=== PATIENT | male | born 1940 | race Caucasian/White ===

== ENCOUNTER 2016-08-30 10:24 | Inpatient (IN) | payer MEDICARE ==
[2016-08-30] VITALS (29 sets, daily range): BP systolic 121–175; BP diastolic 45–124
[~2016-08-30] VITALS: Ht 175.3 cm; Wt 93.0 kg
[2016-08-30] MEDS ORDERED: HEPARIN SODIUM 1,000 UNIT/1ML VIAL IV ONE ×3 (11:10→14:56)
[2016-08-30] MEDS ORDERED: LOSA100T14 PO (12:24)
[2016-08-30] MEDS ORDERED: SIMV40TA5 PO (12:24)
[2016-08-30] MEDS ORDERED: METF10002 PO (12:24)
[2016-08-30] MEDS ORDERED: GLIM2TAB2 PO (12:24)
[2016-08-30] MEDS ORDERED: nitrostat (12:24)
[2016-08-30] MEDS ORDERED: METO100T5 PO (12:24)
[2016-08-30] MEDS ORDERED: ASPI-1035 PO (12:24)
[2016-08-30] MEDS ORDERED: TEMA15CA PO (12:24)
[2016-08-30] MEDS ORDERED: GABA-529 PO (12:24)
[2016-08-30] MEDS ORDERED: ISOS60TA4 PO (12:24)
[2016-08-30] MEDS ORDERED: AMLO2.5T45 PO (12:24)
[2016-08-30] MEDS ORDERED: LIDOCAINE HCL 1% 20ML VIAL (Pyxis) INJ ONE (12:44)
[2016-08-30] MEDS ORDERED: IODIXANOL 320MG/ML 100 ML BOTTLE IV ONE ×3 (12:44→14:36)
[2016-08-30] MEDS ORDERED: MIDAZOLAM HCL 2 MG/2 ML VIAL ONE ×2 (12:46→13:12)
[2016-08-30] MEDS ORDERED: FENTANYL CITRATE/PF 50MCG/ML 2ML VIAL ONE ×2 (12:47→12:48)
[2016-08-30] MEDS ORDERED: IOVERSOL 240MG/ML 100ML BOTTLE IV ONE (13:54)
[2016-08-30] MEDS ORDERED: PROTAMINE SULFATE 10MG/ML VIAL 5ML IV ONE ×2 (15:14→16:05)
[2016-08-30] MEDS ORDERED: ONDANSETRON HCL 4MG/2ML VIAL IV PRN (16:00)
[2016-08-30] MEDS ORDERED: ATROPINE SULFATE 1MG/10ML SYR IV PRN (16:00)
[2016-08-30] MEDS ORDERED: ACETAMINOPHEN 325MG TABLET PO PRN (16:00)
[2016-08-30] MEDS ORDERED: SODIUM CHLORIDE 0.45% 1,000 ML IV ONE (16:00)
[2016-08-30] MEDS ORDERED: PROTAMINE SULFATE 10MG/ML VIAL 25ML IV NR (17:00)
[2016-08-30] MEDS ORDERED: HYDROMORPHONE HCL/PF 2MG/ML CPJ IV PRN (17:15)
[2016-08-30 20:34] LABS: CREATINE KINASE MB FRACTION 1.5 ng/mL (0.5-3.6); TROPONIN I 0.04 ng/mL (0.00-0.04)
[2016-08-30] MEDS: METOPROLOL TARTRATE 50MG TABLET PO SCH (21:00)
[2016-08-31] VITALS (28 sets, daily range): BP systolic 127–158; BP diastolic 44–132
[2016-08-31 05:33] LABS: BASOPHILS % 0.6 % (0.0-2.0); HEMATOCRIT. 33.7 % (42.0-52.0); HEMOGLOBIN. 10.9 g/dL (14.0-18.0); MEAN CORPUSCULAR HEMOGLOBIN 27.4 pg (28.0-32.0); MEAN CORPUSCULAR HGB CONC 32.5 g/dL (31.0-37.0); MEAN CORPUSCULAR VOLUME 84.4 fL (80.0-94.0); MEAN PLATELET VOLUME 10.2 fl (7.4-10.4); MONOCYTES % 10.5 % (2.0-8.0); NEUTROPHILS % 66.9 % (40.0-76.0); PLATELET 169 x1000/uL (130-400); RED BLOOD CELL COUNT 3.99 mill/uL (4.7-6.1); RED CELL DISTRIBUTION WIDTH 14.5 % (11.6-14.6)
[2016-08-31 05:58] LABS: CALCIUM 8.2 mg/dL (8.5-10.1); CREATINE KINASE MB FRACTION 13.8 ng/mL (0.5-3.6)
[2016-08-31 06:32] LABS: TROPONIN I 2.3 ng/mL (0.00-0.04)
[2016-08-31] MEDS: GABAPENTIN 100MG CAPSULE PO SCH (08:30)
[2016-08-31] MEDS: GLIMEPIRIDE 2MG TABLET PO SCH (08:30)
[2016-08-31] MEDS: ASPIRIN 81MG EC TABLET PO SCH (08:30)
[2016-08-31] MEDS: LOSARTAN POTASSIUM 100 MG TABLET PO SCH (08:31)
[2016-08-31] MEDS: METOPROLOL TARTRATE 50MG TABLET PO SCH ×2 (08:31→21:05)
[2016-08-31] MEDS: AMLODIPINE 5MG TABLET PO SCH (08:31)
[2016-08-31] MEDS ORDERED: TEMAZEPAM 15MG CAPSULE PO SCH (21:00)
[2016-08-31] MEDS ORDERED: DEXTROSE 50% WATER 50ML SYRINGE IV PRN (23:30)
[2016-09-01] VITALS: BP 124/55
[2016-09-01 02:00] VITALS: BP 3/61
[2016-09-01 03:47] VITALS: BP 150/71
[2016-09-01 06:29] VITALS: BP 145/74
[2016-09-01 06:35] LABS: BASOPHILS % 0.6 % (0.0-2.0); EOSINOPHILS % 3.8 % (0.0-5.0); HEMATOCRIT. 36.1 % (42.0-52.0); HEMOGLOBIN. 11.7 g/dL (14.0-18.0); LYMPHOCYTES % 19.5 % (20.0-50.0); MEAN CORPUSCULAR HEMOGLOBIN 27.3 pg (28.0-32.0); MEAN CORPUSCULAR HGB CONC 32.5 g/dL (31.0-37.0); MEAN CORPUSCULAR VOLUME 83.9 fL (80.0-94.0); MEAN PLATELET VOLUME 10.1 fl (7.4-10.4); MONOCYTES % 13.3 % (2.0-8.0); NEUTROPHILS % 62.8 % (40.0-76.0); PLATELET 174 x1000/uL (130-400); RED CELL DISTRIBUTION WIDTH 14.3 % (11.6-14.6); WHITE BLOOD COUNT 6.6 x1000/uL (4.5-11.0)
[2016-09-01 06:49] LABS: DIFFERENTIAL COMMENT 1
[2016-09-01] MEDS ORDERED: BLOOD SUGAR DIAGNOSTIC STRIP TEST SCH (06:50)
[2016-09-01 07:00] LABS: ANION GAP 10; CALCIUM 8.4 mg/dL (8.5-10.1); CARBON DIOXIDE 28 mEq/L (21-32); CHLORIDE 106 mEq/L (98-107); HDL CHOLESTEROL 39 mg/dL (40-59); INDEX HEMOLYSI 1 (1-3); INDEX ICTERIC 1 (1-4); INDEX LIPEMIC 1 (1-3); LDL CHOLESTEROL 86 mg/dL (5-100); TRIGLYCERIDE 111 mg/dL (0-150); UREA NITROGEN BLOOD 23 mg/dL (7-21); eGFR > 60 mL/min (>60)
[2016-09-01] MEDS ORDERED: INSULIN LISPRO 100 UNITS/ML SUBCUT SCH (07:20)
[2016-09-01 08:00] VITALS: BP 139/68
[2016-09-01] MEDS: ASPIRIN 81MG EC TABLET PO SCH (08:19)
[2016-09-01] MEDS: LOSARTAN POTASSIUM 100 MG TABLET PO SCH (08:19)
[2016-09-01] MEDS: AMLODIPINE 5MG TABLET PO SCH (08:19)
[2016-09-01] MEDS: GABAPENTIN 100MG CAPSULE PO SCH (08:20)
[2016-09-01] MEDS: METOPROLOL TARTRATE 50MG TABLET PO SCH (08:20)
[2016-09-01] MEDS ORDERED: CLOPIDOGREL 75MG TABLET PO SCH (09:00)
[2016-09-01 09:22] VITALS: BP 139/68
[2016-09-01] MEDS: GLIMEPIRIDE 2MG TABLET PO SCH (09:56)
== END 2016-09-01 10:23 | disposition home or self-care (01) | DRG 247 ==
LOC: CCL 10:24 → CVICU 10:25 → 3WST 08-31 15:05
PROVIDERS: ADMIT Internal Medicine; ATTEND Internal Medicine
PROC: 027044Z Dilation of Coronary Artery, One Artery with Drug-eluting Intraluminal Device, Percutaneous Endoscopic Approach (ICD-10-PCS; principal; 2016-08-30)
PROC: 4A023N7 Measurement of Cardiac Sampling and Pressure, Left Heart, Percutaneous Approach (ICD-10-PCS; 2016-08-30)
PROC: B2131ZZ Fluoroscopy of Multiple Coronary Artery Bypass Grafts using Low Osmolar Contrast (ICD-10-PCS; 2016-08-30)
PROC: B2151ZZ Fluoroscopy of Left Heart using Low Osmolar Contrast (ICD-10-PCS; 2016-08-30)
PROC: B2111ZZ Fluoroscopy of Multiple Coronary Arteries using Low Osmolar Contrast (ICD-10-PCS; 2016-08-30)
DX: I25.110 Atherosclerotic heart disease of native coronary artery with unstable angina pectoris (principal); I34.0 Nonrheumatic mitral (valve) insufficiency; I11.9 Hypertensive heart disease without heart failure; F17.200 Nicotine dependence, unspecified, uncomplicated; E78.5 Hyperlipidemia, unspecified; E11.51 Type 2 diabetes mellitus with diabetic peripheral angiopathy without gangrene; D64.9 Anemia, unspecified; Z79.4 Long term (current) use of insulin
CPT/HCPCS: 36415; 71010; 80048; 80061; 82550; 82553; 82962; 84443; 84484; 85025; 85347; 92937; 93005; 93306; 93459; C1725; C1726; C1769; C1887; C1893; J1170; J1644; J2250; J2720; J3010; J3490; Q9967

== ENCOUNTER 2016-12-22 10:05 | Observation (INO) | payer MEDICARE, OTHER ==
[~2016-12-22] VITALS: Ht 175.3 cm; Wt 88.0 kg
[~2016-12-22 10:05] MED LIST: AMLO2.5T45 PO; ASPI-1159 PO; GABA-529 PO; GLIM2TAB2 PO; ISOS60TA4 PO; LOSA100T14 PO; METF10002 PO; METO100T5 PO; SIMV40TA5 PO; TEMA15CA PO; nitrostat
[2016-12-22] MEDS ORDERED: ONDANSETRON HCL 4MG/2ML VIAL IV STA (10:33)
[2016-12-22] MEDS ORDERED: FAMOTIDINE 20MG/2ML VIAL IV STA (10:33)
[2016-12-22] MEDS ORDERED: MORPHINE SULFATE 4 MG/ML CPJ (NOT FOR IM USE) IV STA (10:33)
[2016-12-22 11:07] LABS: BASOPHILS % 0.8 % (0.0-2.0); EOSINOPHILS % 1.5 % (0.0-5.0); HEMATOCRIT. 33.4 % (42.0-52.0); HEMOGLOBIN. 10.8 g/dL (14.0-18.0); LYMPHOCYTES % 18.2 % (20.0-50.0); MEAN CORPUSCULAR VOLUME 83.4 fL (80.0-94.0); MEAN PLATELET VOLUME 9.3 fl (7.4-10.4); MONOCYTES % 9.3 % (2.0-8.0); NEUTROPHILS % 70.2 % (40.0-76.0); PLATELET 200 x1000/uL (130-400); RED CELL DISTRIBUTION WIDTH 14.4 % (11.6-14.6)
[2016-12-22 11:18] LABS: INR 1.1; PARTIAL THROMBOPLASTIN TIME 26.6 sec (24.0-34.0); PROTHROMBIN TIME 10.9 sec
[2016-12-22 11:21] LABS: CLARITY URINE CLEAR (CLEAR); COLOR URINE YELLOW (YELLOW); GLUCOSE URINE NEGATIVE (NEGATIVE); KETONES URINE NEGATIVE (NEGATIVE); LEUKOCYTE ESTERASE URINE NEGATIVE (NEGATIVE); NITRITE URINE NEGATIVE (NEGATIVE); OCCULT BLOOD URINE NEGATIVE (NEGATIVE); PROTEIN URINE NEGATIVE (NEGATIVE); SPECIFIC GRAVITY URINE 1.018 (1.005-1.030); UROBILINOGEN URINE 0.2 E.U./dL (0.2-1.0)
[2016-12-22 11:26] LABS: CARBON DIOXIDE 28 mEq/L (21-32); CHLORIDE 107 mEq/L (98-107); CREATINE KINASE 107 IU/L (39-308); CREATINE KINASE MB FRACTION 1.7 ng/mL (0.5-3.6); TROPONIN I < 0.02 ng/mL (0.00-0.04)
[2016-12-22] MEDS ORDERED: HYDROCODONE/ACETAMINOPHEN 5/325MG TABLET PO PRN (14:15)
[2016-12-22] MEDS ORDERED: ACETAMINOPHEN 325MG TABLET PO PRN (14:15)
[2016-12-22] MEDS ORDERED: CLONIDINE 0.1MG TABLET PO PRN (14:15)
[2016-12-22] MEDS ORDERED: ONDANSETRON HCL 4MG/2ML VIAL IV PRN (14:15)
[2016-12-22] MEDS ORDERED: IPRATROPIUM/ALBUTEROL 0.5-3(2.5)MG/3ML NEB INH PRN (14:15)
[2016-12-22 16:30] VITALS: BP 152/77
[2016-12-22 17:00] VITALS: BP 152/77
[2016-12-22] MEDS: ASPIRIN 81MG EC TABLET PO SCH (18:15)
[2016-12-22] MEDS: LOSARTAN POTASSIUM 100 MG TABLET PO SCH (18:15)
[2016-12-22] MEDS: GABAPENTIN 100MG CAPSULE PO SCH (18:15)
[2016-12-22] MEDS: ISOSORBIDE MONONITRATE 60MG TABLET SR 24HR PO SCH (18:18)
[2016-12-22] MEDS: METOPROLOL TARTRATE 50MG TABLET PO SCH ×2 (18:18→21:00)
[2016-12-22] MEDS ORDERED: LEVOFLOXACIN 500MG PREMIX 100 ML IV NR (18:30)
[2016-12-22 20:00] VITALS: BP 131/66
[2016-12-22] MEDS ORDERED: TEMAZEPAM 15MG CAPSULE PO SCH (21:00)
[2016-12-22] MEDS: BLOOD SUGAR DIAGNOSTIC STRIP TEST SCH (21:57)
[2016-12-22] MEDS ORDERED: DEXTROSE 50% WATER 50ML SYRINGE IV PRN (22:00)
[2016-12-22] MEDS: INSULIN LISPRO 100 UNITS/ML SUBCUT SCH (22:03)
[2016-12-22 22:35] LABS: CREATINE KINASE 88 IU/L (39-308); TROPONIN I < 0.02 ng/mL (0.00-0.04)
[2016-12-23] VITALS: BP 116/61
[2016-12-23 04:00] VITALS: BP 133/78
[2016-12-23] MEDS: BLOOD SUGAR DIAGNOSTIC STRIP TEST SCH ×2 (06:32→12:20)
[2016-12-23 07:38] LABS: BASOPHILS % 0.6 % (0.0-2.0); EOSINOPHILS % 2.1 % (0.0-5.0); HEMATOCRIT. 32.1 % (42.0-52.0); HEMOGLOBIN. 10.5 g/dL (14.0-18.0); LYMPHOCYTES % 19.2 % (20.0-50.0); MEAN CORPUSCULAR HEMOGLOBIN 27.5 pg (28.0-32.0); MEAN CORPUSCULAR VOLUME 84.1 fL (80.0-94.0); MEAN PLATELET VOLUME 9.7 fl (7.4-10.4); MONOCYTES % 9.3 % (2.0-8.0); NEUTROPHILS % 68.8 % (40.0-76.0); PLATELET 184 x1000/uL (130-400); RED BLOOD CELL COUNT 3.81 mill/uL (4.7-6.1); RED CELL DISTRIBUTION WIDTH 13.9 % (11.6-14.6)
[2016-12-23] MEDS: INSULIN LISPRO 100 UNITS/ML SUBCUT SCH ×2 (07:50→12:50)
[2016-12-23 08:24] LABS: LDL CHOLESTEROL 89 mg/dL (5-100)
[2016-12-23 08:32] LABS: CREATINE KINASE 81 IU/L (39-308); HDL CHOLESTEROL 35 mg/dL (40-59); TROPONIN I < 0.02 ng/mL (0.00-0.04)
[2016-12-23] MEDS: METOPROLOL TARTRATE 50MG TABLET PO SCH (09:00)
[2016-12-23] MEDS ORDERED: AMLODIPINE 5MG TABLET PO SCH (09:00)
[2016-12-23] MEDS: LOSARTAN POTASSIUM 100 MG TABLET PO SCH (09:30)
[2016-12-23] MEDS: GABAPENTIN 100MG CAPSULE PO SCH (09:30)
[2016-12-23] MEDS: ISOSORBIDE MONONITRATE 60MG TABLET SR 24HR PO SCH (09:31)
[2016-12-23] MEDS: ASPIRIN 81MG EC TABLET PO SCH (09:32)
[2016-12-23] MEDS ORDERED: LACTULOSE 20G/30ML UDC PO SCH (13:00)
[2016-12-23] MEDS ORDERED: BISACODYL 5MG TABLET PO PRN (13:00)
[2016-12-23 13:42] VITALS: BP 115/63
[2016-12-23] MEDS ORDERED: LEVOFLOXACIN 250MG PREMIX 50 ML IV SCH (14:00)
== END 2016-12-23 13:55 | disposition home or self-care (01) ==
LOC: ER 10:06 → 6WST 11:50 → INTOOBSV 11:50 → EDBEDREQ 11:53 → EDBEDREQSVC 11:53 → ENRESERV 13:39 → CANBEDREQ 16:16
PROVIDERS: ADMIT Internal Medicine; ATTEND Internal Medicine
DX: R10.11 Right upper quadrant pain (principal); N17.9 Acute kidney failure, unspecified; E11.22 Type 2 diabetes mellitus with diabetic chronic kidney disease; I12.9 Hypertensive chronic kidney disease with stage 1 through stage 4 chronic kidney disease, or unspecified chronic kidney disease; E11.42 Type 2 diabetes mellitus with diabetic polyneuropathy; N18.9 Chronic kidney disease, unspecified; I25.10 Atherosclerotic heart disease of native coronary artery without angina pectoris; F17.200 Nicotine dependence, unspecified, uncomplicated; Z79.4 Long term (current) use of insulin; Z95.1 Presence of aortocoronary bypass graft
CPT/HCPCS: 36415; 74022; 76705; 78227; 80048; 80053; 80061; 81003; 82550; 82553; 82962; 83605; 83690; 84439; 84443; 84484; 85025; 85610; 85730; 87040; 93005; 96365; 96372; 96375; 97161; 99285; A9537; G0378; J1815; J1956; J2270; J2405; J3490; J7050